=== PATIENT | male | born 1990 | race Caucasian/White ===

== ENCOUNTER → 2020-06-03 | Outpatient (CLI) | payer SELFPAY | LOC: M LABSMTC 11:51 | PROVIDERS: ATTEND Pediatrics | DX: Z20.828 Contact with and (suspected) exposure to other viral communicable diseases (principal) ==

== ENCOUNTER → 2021-10-09 | Outpatient (CLI) | payer OTHER | LOC: M PLAIMG 06:38 | PROVIDERS: ATTEND Dermatology | DX: D48.7 Neoplasm of uncertain behavior of other specified sites (principal); M25.461 Effusion, right knee; M79.89 Other specified soft tissue disorders ==